=== PATIENT | female | born 1995 | race Caucasian/White ===

== ENCOUNTER 2019-11-04 09:10 | Inpatient (IN) | payer MEDICAID, SELFPAY ==
[2019-11-02 14:07] LABS: BASOPHILS % (AUTO) 0.6 % (0.0-2.0); EOSINOPHILS # (AUTO) 0.1 K/uL (0-0.4); EOSINOPHILS % (AUTO) 1.1 % (0.0-4.0); HEMATOCRIT 34.7 % (36-48); HEMOGLOBIN 11.6 g/dL (12.0-16.0); LYMPHOCYTES # (AUTO) 1.9 K/uL (2.5-16.5); LYMPHOCYTES % (AUTO) 30.6 % (20.5-51.1); MEAN CORPUSCULAR HEMOGLOBIN 29 pg (27-31); MEAN CORPUSCULAR HGB CONC 34 g/dL (33-37); MEAN CORPUSCULAR VOLUME 85.4 fL (80-94); MONOCYTES # (AUTO) 0.4 K/uL (0.8-1.0); MONOCYTES % (AUTO) 7.2 % (1.7-9.3); NEUTROPHILS # (AUTO) 3.8 K/uL (1.8-7.7); NEUTROPHILS % (AUTO) 60.5 % (42.2-75.2); PLATELET COUNT (AUTO) 246 K/uL (140-450); RED BLOOD CELL COUNT(AUTO) 4.07 MIL/uL (4.20-5.40); RED CELL DISTRIBUTION WIDTH 14.1 % (11.6-13.7); WHITE BLOOD COUNT (AUTO) 6.2 K/uL (4.8-10.8)
[2019-11-03 09:40] LABS: RAPID PLASMA REAGIN NON-REACTIVE (Non Reactiv)
[~2019-11-04] VITALS: Ht 152.4 cm; Wt 65.3 kg
[2019-11-04] MEDS: OXYTOCIN 20 UNITS in LACTATED RINGERS 1,000 ML IV SCH ×2 (08:20→23:57)
[2019-11-04 09:31] LABS: APPEARANCE,URINE CLEAR (CLEAR); BILIRUBIN,URINE NEGATIVE (NEGATIVE); BLOOD, URINE NEGATIVE (NEGATIVE); COLOR,URINE YELLOW (YELLOW); LEUKOCYTE ESTERASE ,URINE NEGATIVE (NEGATIVE); NITRITE, URINE NEGATIVE (NEGATIVE); UGLUCOSE NEGATIVE (NEGATIVE)
[2019-11-04] MEDS ORDERED: LACTATED RINGERS 1,000 ML IV SCH (10:12)
[2019-11-04 12:31] VITALS: BP 121/79
[2019-11-04] MEDS ORDERED: MORPHINE PRES FREE 10 MG/10 ML AMP IV ONE (13:18)
[2019-11-04] MEDS ORDERED: MIDAZOLAM 2 MG/2 ML VIAL ONE (13:18)
[2019-11-04] MEDS ORDERED: TEMAZEPAM 15 MG CAP PO PRN (13:40)
[2019-11-04] MEDS ORDERED: IBUPROFEN 800 MG TAB PO PRN (13:40)
[2019-11-04] MEDS ORDERED: METHYLERGONOVINE 0.2 MG/ML AMP IM PRN (13:40)
[2019-11-04] MEDS ORDERED: KETOROLAC 30 MG/ML VIAL IVP PRN (13:40)
[2019-11-04] MEDS ORDERED: oxyCODONE/APAP 5/325 MG 1 TAB TAB PO PRN (13:40)
[2019-11-04] MEDS ORDERED: OXYTOCIN 20 UNITS in LACTATED RINGERS 1,000 ML IV SCH (14:12)
[2019-11-04] MEDS ORDERED: HYDROmorphone 1 MG/ML AMP IVP PRN (14:15)
[2019-11-04] MEDS ORDERED: NALOXONE 0.4 MG/ML VIAL IVP PRN ×3 (14:15)
[2019-11-04] MEDS ORDERED: ONDANSETRON 4 MG/2 ML VIAL IVP PRN ×2 (14:15)
[2019-11-04] MEDS ORDERED: MEPERIDINE 25 MG/ML SYR IVP PRN (14:15)
[2019-11-04] MEDS ORDERED: diphenhydrAMINE 50 MG/ML VIAL IVP PRN ×2 (14:15)
[2019-11-04] MEDS ORDERED: OXYTOCIN 10 UNITS/ML VIAL ONE (14:49)
[2019-11-04] MEDS: KETOROLAC 30 MG/ML VIAL IM/IVP SCH (18:11)
[2019-11-04] MEDS: DOCUSATE SOD/SENNA 50/8.6 MG 1 TAB PO SCH (21:00)
[2019-11-05] MEDS: KETOROLAC 30 MG/ML VIAL IM/IVP SCH ×3 (00:13→12:47)
[2019-11-05 07:11] LABS: BASOPHILS # (AUTO) 0.1 K/uL (0.00-0.22); BASOPHILS % (AUTO) 0.6 % (0.0-2.0); EOSINOPHILS % (AUTO) 0.1 % (0.0-4.0); HEMATOCRIT 32.9 % (36-48); LYMPHOCYTES # (AUTO) 1.7 K/uL (2.5-16.5); LYMPHOCYTES % (AUTO) 14.6 % (20.5-51.1); MEAN CORPUSCULAR HEMOGLOBIN 28 pg (27-31); MEAN CORPUSCULAR HGB CONC 34 g/dL (33-37); MEAN CORPUSCULAR VOLUME 84.5 fL (80-94); MONOCYTES # (AUTO) 0.7 K/uL (0.8-1.0); MONOCYTES % (AUTO) 5.8 % (1.7-9.3); NEUTROPHILS # (AUTO) 9.1 K/uL (1.8-7.7); NEUTROPHILS % (AUTO) 78.9 % (42.2-75.2); PLATELET COUNT (AUTO) 226 K/uL (140-450); RED BLOOD CELL COUNT(AUTO) 3.89 MIL/uL (4.20-5.40); WHITE BLOOD COUNT (AUTO) 11.6 K/uL (4.8-10.8)
[2019-11-05] MEDS ORDERED: OXYTOCIN 20 UNITS/LR PREMIX 1,000 ML IV ONE (07:37)
[2019-11-05] MEDS: SIMETHICONE 80 MG TAB.CHEW PO PRN ×3 (08:53→17:49)
[2019-11-05] MEDS: oxyCODONE/APAP 5/325 MG 1 TAB TAB PO PRN (19:53)
[2019-11-05] MEDS: DOCUSATE SOD/SENNA 50/8.6 MG 1 TAB PO SCH (20:44)
[2019-11-06] MEDS: oxyCODONE/APAP 5/325 MG 1 TAB TAB PO PRN ×3 (04:00→20:30)
--- NOTE | 2019-11-06 07:50 | NUR ---
PATIENT HAS BEEN SCREENED AND CATEGORIZED LOW NUTRITION RISK. PATIENT WILL BE SEEN WITHIN 7 DAYS OF ADMISSION. 11/11/19 KVNG GEORGE MS, RDN
[2019-11-06] MEDS: SIMETHICONE 80 MG TAB.CHEW PO PRN ×3 (08:33→20:30)
[2019-11-06] MEDS: SODIUM PHOSPHATE 118 ML ENEM RC SCH (09:20)
[2019-11-06] MEDS: DOCUSATE SOD/SENNA 50/8.6 MG 1 TAB PO SCH (20:30)
[2019-11-06] MEDS ORDERED: CAMERA MC ONE (22:48)
[2019-11-07] MEDS: oxyCODONE/APAP 5/325 MG 1 TAB TAB PO PRN (02:52)
[2019-11-07] MEDS: SODIUM PHOSPHATE 118 ML ENEM RC SCH (09:00)
== END 2019-11-07 10:30 | disposition home or self-care (01) | DRG 540 ==
LOC: MLD 09:10 → PREOBSVTOIN 12:59 → MFCC 15:26
PROVIDERS: ADMIT Obstetrics & Gynecology; ATTEND Obstetrics & Gynecology
PROC: 3E0234Z Introduction of Serum, Toxoid and Vaccine into Muscle, Percutaneous Approach (ICD-10-PCS; 2019-11-04)
PROC: 10D00Z1 Extraction of Products of Conception, Low, Open Approach (ICD-10-PCS; principal; 2019-11-04 12:30)
DX: O34.211 Maternal care for low transverse scar from previous cesarean delivery (principal); Z23 Encounter for immunization; Z37.0 Single live birth; Z3A.39 39 weeks gestation of pregnancy
CPT/HCPCS: 36415; 81003; 85025; 86592; 86886; 86900; 86901; 90715; J0690; J1885; J2250; J2270; J2405; J2590; J7060; J7120; U0003-CS